=== PATIENT | female | born 1980 | race African-American/Black ===

== ENCOUNTER 2018-08-05 08:43 | Emergency (ER) | payer BC, OTHER ==
[~2018-08-05] VITALS: Ht 170.2 cm; Wt 108.0 kg
[~2018-08-05 08:43] MED LIST: ONDA4TAB7 PO
--- NOTE | 2018-08-05 09:10 | PHYS DOC ---
Past Medical History Past Medical History: Asthma, Hypertension Past Surgical History: No Surgical History Alcohol Use: Occasionally Drug Use: None Adult General Chief Complaint Chief Complaint: ABDOMINAL PAIN HPI HPI Patient is a 37 year old female presents with left lower quadrant pain onset 2: 27 AM sharp severe nonradiating worse with time patient is crying severe pain never had this before Review of Systems Review of Systems Constitutional: Denies fever or chills [] Eyes: Denies change in visual acuity, redness, or eye pain [] HENT: Denies nasal congestion or sore throat [] Respiratory: Denies cough or shortness of breath [] Musculoskeletal: Denies back pain or joint pain [] Integument: Denies rash or skin lesions [] Neurologic: Denies headache, focal weakness or sensory changes [] Endocrine: Denies polyuria or polydipsia [] All other systems were reviewed and found to be within normal limits, except as documented in this note. Current Medications Current Medications Current Medications Medications (Trade) Dose Ordered Sig/Kojo Start Time Stop Time Status Last Admin Dose Admin Lidocaine/ Epinephrine (LIDOCAINE 1%-EPI 1:100,000 Multi-Dose) 20 ml 1X ONCE 08/05/18 10:30 08/05/18 10:31 DC Morphine Sulfate (Morphine Sulfate) 4 mg 1X ONCE 08/05/18 09:15 08/05/18 09:16 DC 08/05/18 09:43 4 MG Ondansetron HCl (Zofran) 4 mg 1X ONCE 08/05/18 09:15 08/05/18 09:16 DC 08/05/18 09:43 4 MG Allergies Allergies Allergies Coded Allergies Type Severity Reaction Last Updated Verified acetaminophen Allergy Intermediate Hives 08/05/18 Yes hydrocodone Allergy Intermediate Hives 08/05/18 Yes latex Allergy Intermediate 08/05/18 Yes naproxen Allergy Mild Nausea and Vomiting 08/05/18 Yes Physical Exam Physical Exam Constitutional: Well developed, well nourished, tearful distress, non-toxic appearance. [] HENT: Normocephalic, atraumatic, bilateral external ears normal, oropharynx moist, no oral exudates, nose normal. [] Eyes: PERRLA, EOMI, conjunctiva normal, no discharge. [] Neck: Normal range of motion, no tenderness, supple, no stridor. [] Pulmonary: Normal respiratory effort no increased work of breathing no obvious chest wall trauma Abdomen: Bowel sounds normal, soft, left lower quadrant tenderness no right lower quadrant tenderness really, no masses, no pulsatile masses. [] Skin: Warm, dry, no erythema, no rash. [] Back: No tenderness, no CVA tenderness. [] Extremities: No tenderness, no cyanosis, no clubbing, ROM intact, no edema. [] Neurologic: Alert and oriented X 3, normal motor function, normal sensory function, no focal deficits noted. [] Psychologic: Affect normal, judgement normal, mood normal. [] Current Patient Data Vital Signs Vital Signs Date Time Temp Pulse Resp B/P (MAP) Pulse Ox O2 Delivery O2 Flow Rate FiO2 08/05/18 09:43 18 100 Room Air 08/05/18 08:50 98.6 103 160/100 (120) 98.6 Lab Values Laboratory Tests Test 08/05/18 09:40 08/05/18 10:13 08/05/18 10:18 White Blood Count 5.1 x10^3/uL (4.0-11.0) Red Blood Count 4.79 x10^6/uL (3.50-5.40) Hemoglobin 13.1 g/dL (12.0-15.5) Hematocrit 39.1 % (36.0-47.0) Mean Corpuscular Volume 82 fL (79-100) Mean Corpuscular Hemoglobin 27 pg (25-35) Mean Corpuscular Hemoglobin Concent 34 g/dL (31-37) Red Cell Distribution Width 14.4 % (11.5-14.5) Platelet Count 240 x10^3/uL (140-400) Neutrophils (%) (Auto) 64 % (31-73) Lymphocytes (%) (Auto) 20 % (24-48) L Monocytes (%) (Auto) 14 % (0-9) H Eosinophils (%) (Auto) 1 % (0-3) Basophils (%) (Auto) 1 % (0-3) Neutrophils # (Auto) 3.2 x10^3uL (1.8-7.7) Lymphocytes # (Auto) 1.0 x10^3/uL (1.0-4.8) Monocytes # (Auto) 0.7 x10^3/uL (0.0-1.1) Eosinophils # (Auto) 0.1 x10^3/uL (0.0-0.7) Basophils # (Auto) 0.0 x10^3/uL (0.0-0.2) Prothrombin Time 13.7 SEC (11.7-14.0) Prothrombin Time INR 1.1 (0.8-1.1) Sodium Level 137 mmol/L (136-145) Potassium Level 3.5 mmol/L (3.5-5.1) Chloride Level 102 mmol/L (98-107) Carbon Dioxide Level 25 mmol/L (21-32) Anion Gap 10 (6-14) Blood Urea Nitrogen 7 mg/dL (7-20) Creatinine 1.0 mg/dL (0.6-1.0) Estimated GFR (Cockcroft-Gault) 75.1 BUN/Creatinine Ratio 7 (6-20) Glucose Level 100 mg/dL (70-99) H Calcium Level 8.6 mg/dL (8.5-10.1) Total Bilirubin 0.3 mg/dL (0.2-1.0) Aspartate Amino Transferase (AST) 19 U/L (15-37) Alanine Aminotransferase (ALT) 25 U/L (14-59) Alkaline Phosphatase 78 U/L (46-116) Total Protein 7.8 g/dL (6.4-8.2) Albumin 3.5 g/dL (3.4-5.0) Albumin/Globulin Ratio 0.8 (1.0-1.7) L Urine Collection Type Void Urine Color Yellow Urine Clarity Clear Urine pH 6.0 Urine Specific [place] 1.010 Urine Protein Negative mg/dL (NEG-TRACE) Urine Glucose (UA) Negative mg/dL (NEG) Urine Ketones (Stick) Negative mg/dL (NEG) Urine Blood Negative (NEG) Urine Nitrite Negative (NEG) Urine Bilirubin Negative (NEG) Urine Urobilinogen Dipstick 1.0 mg/dL (0.2 mg/dL) Urine Leukocyte Esterase Small (NEG) Urine RBC 0 /HPF (0-2) Urine WBC 5-10 /HPF (0-4) Urine Squamous Epithelial Cells Mod /LPF Urine Bacteria Many /HPF (0-FEW) POC Urine HCG, Qualitative Hcg negative (Negative) Laboratory Tests 08/05/18 09:40 Laboratory Tests 08/05/18 09:40 EKG EKG [] Radiology/Procedures Radiology/Procedures [] Impressions: IMPRESSION: 1. 2.8 cm cystic structure identified in the left ovary probably a cyst or cystic lesion. Follow-up examination is recommended to document stability. 2. Mild thickened appearance of the endometrium with questionable increased vascular flow, endometrial hyperplasia or phase of menstrual cycle are possibilities. Correlate clinically. Course & Med Decision Making Course & Med Decision Making Pertinent Labs and Imaging studies reviewed. (See chart for details) []PT BETTER AFTER MORPHINE, COMFORTABLE CYST NOTED NO SIGN OF TORSION OXYCODONE RX, GIVEN PREC ON THIS MED. F/U IN 2 MONTHS FOR REPEAT U/S Dragon Disclaimer Dragon Disclaimer This electronic medical record was generated, in whole or in part, using a voice recognition dictation system. Departure Departure Impression: Primary Impression: Ovarian cyst Disposition: 01 HOME, SELF-CARE Condition: IMPROVED Referrals: LISBETH CAMPBELL DO (PCP) Scripts Oxycodone/Apap 5-325 (PERCOCET 5-325 MG TABLET ) 1 Each Tablet 1-2 EACH PO PRN TID PRN for PAIN, #10 TAB pain Prov: NOREEN BAUTISTA MD 08/05/18 NOREEN BAUTISTA MD Aug 05, 2018 09:10
[2018-08-05] MEDS ORDERED: ONDANSETRON PF 4 MG/2 ML VIAL. IV ONE (09:15)
[2018-08-05] MEDS ORDERED: MORPHINE SULFATE 4 MG/ML VIAL. IV ONE (09:15)
[2018-08-05 09:59] LABS: BASO % 1 % (0-3); EOS # 0.1 x10^3/uL (0.0-0.7); EOS % 1 % (0-3); HEMATOCRIT 39.1 % (36.0-47.0); HEMOGLOBIN 13.1 g/dL (12.0-15.5); LYMPH % 20 % (24-48); MEAN CORPUSCULAR HEMOGLOBIN 27 pg (25-35); MEAN CORPUSCULAR HGB CONC 34 g/dL (31-37); MEAN CORPUSCULAR VOLUME 82 fL (79-100); MONO # 0.7 x10^3/uL (0.0-1.1); MONO % 14 % (0-9); NEUT # 3.2 x10^3uL (1.8-7.7); NEUT % 64 % (31-73); PLATELET COUNT 240 x10^3/uL (140-400); RED BLOOD COUNT 4.79 x10^6/uL (3.50-5.40); RED CELL DISTRIBUTION WIDTH 14.4 % (11.5-14.5); WHITE BLOOD COUNT 5.1 x10^3/uL (4.0-11.0)
[2018-08-05 10:10] LABS: CALCIUM 8.6 mg/dL (8.5-10.1); GFR 75.1; POTASSIUM 3.5 mmol/L (3.5-5.1); PROTHROMBIN TIME PATIENT 13.7 SEC (11.7-14.0)
[2018-08-05 10:13] LABS: ALBUMIN 3.5 g/dL (3.4-5.0); ALBUMIN/GLOBULIN RATIO 0.8 (1.0-1.7); TOTAL BILIRUBIN 0.3 mg/dL (0.2-1.0); TOTAL PROTEIN 7.8 g/dL (6.4-8.2)
[2018-08-05 10:30] LABS: BILIRUBIN,URINE NEGATIVE (NEG); CLARITY,URINE CLEAR; COLOR,URINE YELLOW; NITRITE,URINE NEGATIVE (NEG); PROTEIN,URINE NEGATIVE (NEG-TRACE)
[2018-08-05] MEDS ORDERED: LIDOCAINE 1%/EPI 1:100,000 20 ML VIAL. INJ ONE (10:30)
[2018-08-05 10:42] LABS: SQUAMOUS EPITHELIAL CELL,UR MOD /LPF
--- NOTE | 2018-08-05 10:43 | RAD ---
Examination: Ultrasound pelvis HISTORY: History of left lower quadrant pelvic pain COMPARISON: None available FINDINGS: The uterus measures 9.5 x 5.0 cm. The endometrium measures 1.7 cm in thickness. Questionable mild increased vascular flow identified in the endometrium. The right ovary measures 3.9 x 2.2 x 2.3 cm. The left ovary measures 4.6 x 3.2 x 2.9 cm. Blood flow identified in the right and left ovaries.. There is a cystic structure identified in the left ovary measuring 2.8 cm. IMPRESSION: 1. 2.8 cm cystic structure identified in the left ovary probably a cyst or cystic lesion. Follow-up examination is recommended to document stability. 2. Mild thickened appearance of the endometrium with questionable increased vascular flow, endometrial hyperplasia or phase of menstrual cycle are possibilities. Correlate clinically. Electronically signed by: Willy Coughlin MD (08/05/2018 10:40 AM) [place] [id number]
[2018-08-05 10:44] LABS: BACTERIA,URINE MANY /HPF (0-FEW); RBC,URINE 0 /HPF (0-2)
[2018-08-05] MEDS ORDERED: OXYC1TAB15 PO (10:59)
[2018-08-05 11:10] VITALS: BP 169/85
== END 2018-08-05 11:19 | disposition home or self-care (01) ==
LOC: ER 08:43
DX: N83.202 Unspecified ovarian cyst, left side (principal); J45.909 Unspecified asthma, uncomplicated; I10 Essential (primary) hypertension; Z88.5 Allergy status to narcotic agent; Z88.6 Allergy status to analgesic agent; Z88.8 Allergy status to other drugs, medicaments and biological substances; Z91.040 Latex allergy status
CPT/HCPCS: 36415; 76856; 80053; 81001; 81025; 85025; 85610; 87086; 96374; 96375; 99284; J2270; J2405

== ENCOUNTER 2018-08-25 19:00 | Emergency (ER) | payer BC, OTHER ==
[~2018-08-25] VITALS: Ht 170.2 cm; Wt 108.9 kg
[~2018-08-25 19:00] MED LIST changes: +OXYC1TAB15 PO
[2018-08-25] MEDS ORDERED: fentaNYL PF VIAL 100 MCG/2 ML VIAL IV ONE (21:00)
[2018-08-25] MEDS ORDERED: IV NORMAL SALINE 1000ML BAG 1,000 ML IV ONE (21:00)
[2018-08-25] MEDS ORDERED: KETOROLAC 15 MG/ML VIAL. IV ONE (21:15)
[2018-08-25 21:23] LABS: CALCIUM 8.9 mg/dL (8.5-10.1); GFR 75.1; POTASSIUM 3.2 mmol/L (3.5-5.1)
[2018-08-25 21:30] LABS: ALBUMIN 3.3 g/dL (3.4-5.0); ALBUMIN/GLOBULIN RATIO 0.8 (1.0-1.7); TOTAL BILIRUBIN 0.2 mg/dL (0.2-1.0); TOTAL PROTEIN 7.7 g/dL (6.4-8.2)
--- NOTE | 2018-08-25 21:34 | PHYS DOC ---
Past Medical History Past Medical History: Asthma, Hypertension Past Surgical History: Other Additional Past Surgical Histo: breast reduction Alcohol Use: Occasionally Drug Use: None Adult General Chief Complaint Chief Complaint: ABDOMINAL PAIN HPI HPI Patient is a 37 year old presents to the ED with left lower quadrant abdominal and adnexal pain. The pain started suddenly when she was sitting at work earlier 4-5 hours ago. The pain radiates through to her left low back and flank. She describes the pain as a stabbing 10/10 pain. The only thing that makes it better is lying right lateral recumbent in the position. Aggravating factors are standing and walking. Denies . Denies trauma. Denies fever/chills. Review of Systems Review of Systems Constitutional: Denies fever or chills [] Eyes: Denies change in visual acuity, redness, or eye pain [] HENT: Denies nasal congestion or sore throat [] Respiratory: Denies cough or shortness of breath [] Cardiovascular: Denies chest pain or palpitations. GI: Admits left abdominal pain. Denies nausea, vomiting, or diarrhea [] : Admits left adnexal pain Denies dysuria or hematuria [] Musculoskeletal: Reports back pain; denies joint pain [] Integument: Denies rash or skin lesions [] Neurologic: Denies headache, focal weakness or sensory changes [] Complete systems were reviewed and found to be within normal limits, except as documented in this note. Current Medications Current Medications Current Medications Medications (Trade) Dose Ordered Sig/Kojo Start Time Stop Time Status Last Admin Dose Admin Ceftriaxone Sodium (Rocephin) 1 gm 1X ONCE 08/25/18 23:45 08/25/18 23:46 DC 08/26/18 00:08 1 GM Fentanyl Citrate (Fentanyl 2ml Vial) 50 mcg 1X ONCE 08/25/18 21:00 08/25/18 21:07 DC 08/25/18 21:14 50 MCG Ketorolac Tromethamine (Toradol 15mg Vial) 15 mg 1X ONCE 08/25/18 21:15 08/25/18 21:16 DC 08/25/18 21:14 15 MG Morphine Sulfate (Morphine Sulfate) 4 mg 1X ONCE 08/25/18 22:45 08/25/18 22:46 DC 08/25/18 22:52 4 MG Ondansetron HCl (Zofran) 4 mg 1X ONCE 08/26/18 00:45 08/26/18 00:46 DC 08/26/18 00:46 4 MG Potassium Chloride (Klor-Con) 40 meq 1X ONCE 08/25/18 23:45 08/25/18 23:46 DC 08/26/18 00:07 40 MEQ Sodium Chloride 1,000 ml @ 1,000 mls/hr 1X ONCE 08/25/18 21:00 08/25/18 21:59 DC 08/25/18 21:15 1,000 MLS/HR Allergies Allergies Allergies Coded Allergies Type Severity Reaction Last Updated Verified acetaminophen Allergy Intermediate Hives 08/05/18 Yes hydrocodone Allergy Intermediate Hives 08/05/18 Yes latex Allergy Intermediate 08/05/18 Yes naproxen Adverse Reaction Intermediate Nausea and Vomiting 08/25/18 Yes Physical Exam Physical Exam Constitutional: Well developed, well nourished, no acute distress, non-toxic appearance. [] HENT: Normocephalic, atraumatic, oropharynx moist Eyes: Conjunctiva normal, no discharge. [] Neck: Normal range of motion, no tenderness, supple Cardiovascular: Heart rate regular rhythm, CR < 2 sec Lungs & Thorax: Bilateral breath sounds clear to auscultation [] Abdomen: Soft, tender to palpation left lower quadrant and left adnexal areas. Guarding present. No rebound tenderness. Negative Rush's sign, negative McBurney sign. Skin: Warm, dry, no erythema, no rash. [] Back: Left CVA tenderness present. Left lower lumbar paraspinal muscle tenderness. Nonerythematous. [] Extremities: No tenderness, ROM intact, no edema. [] Neurologic: Alert and oriented, no focal deficits noted. [] Psychologic: Affect normal, judgement normal, mood normal. [] Current Patient Data Vital Signs Vital Signs Date Time Temp Pulse Resp B/P (MAP) Pulse Ox O2 Delivery O2 Flow Rate FiO2 08/25/18 23:41 87 20 176/92 (120) 99 Room Air 08/25/18 19:39 97.2 97.2 Lab Values Laboratory Tests Test 08/25/18 21:08 08/25/18 22:00 08/25/18 22:56 White Blood Count 12.1 x10^3/uL (4.0-11.0) H Red Blood Count 4.78 x10^6/uL (3.50-5.40) Hemoglobin 12.6 g/dL (12.0-15.5) Hematocrit 38.9 % (36.0-47.0) Mean Corpuscular Volume 81 fL (79-100) Mean Corpuscular Hemoglobin 26 pg (25-35) Mean Corpuscular Hemoglobin Concent 32 g/dL (31-37) Red Cell Distribution Width 14.4 % (11.5-14.5) Platelet Count 281 x10^3/uL (140-400) Neutrophils (%) (Auto) 63 % (31-73) Lymphocytes (%) (Auto) 26 % (24-48) Monocytes (%) (Auto) 8 % (0-9) Eosinophils (%) (Auto) 1 % (0-3) Basophils (%) (Auto) 1 % (0-3) Neutrophils # (Auto) 7.7 x10^3uL (1.8-7.7) Lymphocytes # (Auto) 3.2 x10^3/uL (1.0-4.8) Monocytes # (Auto) 1.0 x10^3/uL (0.0-1.1) Eosinophils # (Auto) 0.1 x10^3/uL (0.0-0.7) Basophils # (Auto) 0.1 x10^3/uL (0.0-0.2) Sodium Level 139 mmol/L (136-145) Potassium Level 3.2 mmol/L (3.5-5.1) L Chloride Level 102 mmol/L (98-107) Carbon Dioxide Level 30 mmol/L (21-32) Anion Gap 7 (6-14) Blood Urea Nitrogen 10 mg/dL (7-20) Creatinine 1.0 mg/dL (0.6-1.0) Estimated GFR (Cockcroft-Gault) 75.1 BUN/Creatinine Ratio 10 (6-20) Glucose Level 141 mg/dL (70-99) H Calcium Level 8.9 mg/dL (8.5-10.1) Magnesium Level 2.0 mg/dL (1.8-2.4) Total Bilirubin 0.2 mg/dL (0.2-1.0) Aspartate Amino Transferase (AST) 22 U/L (15-37) Alanine Aminotransferase (ALT) 32 U/L (14-59) Alkaline Phosphatase 86 U/L (46-116) Total Protein 7.7 g/dL (6.4-8.2) Albumin 3.3 g/dL (3.4-5.0) L Albumin/Globulin Ratio 0.8 (1.0-1.7) L Lipase 758 U/L (73-393) H Urine Color Yellow Urine Clarity Clear Urine pH 6.0 Urine Specific [place] 1.015 Urine Protein Negative mg/dL (NEG-TRACE) Urine Glucose (UA) Negative mg/dL (NEG) Urine Ketones (Stick) Negative mg/dL (NEG) Urine Blood Negative (NEG) Urine Nitrite Positive (NEG) Urine Bilirubin Negative (NEG) Urine Urobilinogen Dipstick 0.2 mg/dL (0.2 mg/dL) Urine Leukocyte Esterase Small (NEG) Urine RBC 0 /HPF (0-2) Urine WBC 1-4 /HPF (0-4) Urine Squamous Epithelial Cells Occ /LPF Urine Bacteria Many /HPF (0-FEW) POC Urine HCG, Qualitative Hcg negative (Negative) Laboratory Tests 08/25/18 21:08 Laboratory Tests 08/25/18 21:08 Microbiology 08/25/18 Urine Culture - Final, Complete 08/25/18 Urine Culture Result 1 (LAURENCE) - Final, Complete 08/25/18 Antimicrobic Susceptibility - Final, Complete Microbiology 08/25/18 Urine Culture - Final, Complete 08/25/18 Urine Culture Result 1 (LAURENCE) - Final, Complete 08/25/18 Antimicrobic Susceptibility - Final, Complete EKG EKG [] Radiology/Procedures Radiology/Procedures PROCEDURE: PELVIS W/TV PELVIS W/TV History: Left lower quadrant pain for 6 hours Comparison: None. Findings: Multiple transabdominal sonographic images of pelvis are submitted. Uterus measured 8.9 x 5 x 5.4 cm. Neither ovary is well visualized. Transvaginal ultrasound: Multiple transvaginal sonographic images of the pelvis are submitted. Endometrium measured about 1 cm in thickness. Uterus measured 10.3 x 4.7 x 5.1 cm. There are nabothian cysts. There is nonspecific heterogeneity of the myometrium. There is minimal free fluid near the right ovary. Right ovary measured 4 x 1.8 x 1.9 cm. Left ovary measured 5.3 x 2.9 x 2.6 cm. There is a hypoechoic lesion of the left ovary about 1.7 x 1.6 x 1.9 cm. There is normal color flow and low resistance vascularity of the ovaries bilaterally. Impression: 1. There is a small cyst or dominant follicle of the left ovary. There is minimal free fluid near the right ovary. Electronically signed by: Chrystal Vanegas MD (08/25/2018 10:00 PM) [facility] PROCEDURE: CT ABDOMEN PELVIS WO CONTRAST CT Abdomen and Pelvis without contrast History: Left flank pain, history of left ovarian cyst Technique: Noncontrast CT imaging was performed of the abdomen and pelvis. Multiplanar images are reviewed. Exposure: One or more of the following individualized dose reduction techniques were utilized for this examination: 1. Automated exposure control 2. Adjustment of the mA and/or kV according to patient size 3. Use of iterative reconstruction technique. Comparison: October 06, 2012 Findings: There is no abnormality limited visualized lung bases. There is no no urolithiasis or hydronephrosis. Gallbladder is present without obvious intraluminal abnormality by CT. There is similar fullness of the left adrenal gland, possible underlying adenoma unchanged. No obvious focal abnormality is identified of the liver, spleen, pancreas allowing for noncontrast technique. Evaluation of bowel is limited without oral contrast. There is no free air or significant free fluid. Normal appendix is visualized. There is fullness of the left adnexa with likely 2.5 cm hypodense lesion although density measurements not of a simple cyst 28 Hounsfield units. Impression: 1. There is what may represent a complex left adnexal cyst otherwise difficult characterize by CT, no free fluid. 2. There is no evidence of acute appendicitis. Electronically signed by: Chrystal Vanegas MD (08/25/2018 11:48 PM) [facility] DICTATED and SIGNED BY: CHRYSTAL VANEGAS MD DATE: 08/25/182156 Course & Med Decision Making Course & Med Decision Making Pertinent Labs and Imaging studies reviewed. (See chart for details) Patient is a 37-year-old female presents to the emergency department with pain in the left lower quadrant, left adnexal, left low back, and left flank. Lipase 2 times the upper limit of normal. Pelvic ultrasound showed no signs of torsion and a small cyst on the left ovary. CBC Slightly Elevated. Mild Hypokalemia noted and treated with replacement. CT abdomen and pelvis noted the left sided ovarian cyst but otherwise without acute process. UA showed signs of infection and empiric antibiotics were started. Patient stable for discharge home with outpatient follow-up with PCP/[facility]/GI. GI [facility] referral provided. Discussed findings and plan with patient, who acknowledges understanding and agreement. Dragon Disclaimer Dragon Disclaimer This electronic medical record was generated, in whole or in part, using a voice recognition dictation system. Departure Departure Impression: Primary Impression: Ovarian cyst Additional Impressions: Elevated lipase Urinary tract infection Hypokalemia Disposition: HOME, SELF-CARE Condition: STABLE Referrals: LISBETH CAMPBELL DO (PCP) SHRUTI LAO Jr, MD, SCOTT S MD Patient Instructions: Hypokalemia-Brief, Lipase, Ovarian Cyst, [id number], Potassium Content of Foods, Urinary Tract Infection, [id number] Scripts Ondansetron (ONDANSETRON ODT) 4 Mg Tab.rapdis 1 TAB PO PRN Q6-8HRS PRN for NAUSEA, #16 TAB Prov: GUY CRAFT DO 08/26/18 Cephalexin (KEFLEX) 500 Mg Capsule 500 MG PO TID for 7 Days, #21 CAP Prov: GUY CRAFT DO 08/26/18 Oxycodone/Apap 5-325 (PERCOCET 5-325 MG TABLET ) 1 Each Tablet 1 TAB PO PRN Q6HRS PRN for PAIN, #8 TAB 0 Refills Prov: GUY CRAFT DO 08/26/18 Problem Qualifiers Primary Impression: Ovarian cyst Laterality: left Qualified Codes: N83.202 - Unspecified ovarian cyst, left side Additional Impressions: Urinary tract infection Urinary tract infection type: acute cystitis Hematuria presence: without hematuria Qualified Codes: N30.00 - Acute cystitis without hematuria GUY CRAFT DO Aug 25, 2018 21:34
[2018-08-25 21:52] LABS: BASO # 0.1 x10^3/uL (0.0-0.2); BASO % 1 % (0-3); EOS # 0.1 x10^3/uL (0.0-0.7); EOS % 1 % (0-3); HEMATOCRIT 38.9 % (36.0-47.0); HEMOGLOBIN 12.6 g/dL (12.0-15.5); LYMPH # 3.2 x10^3/uL (1.0-4.8); LYMPH % 26 % (24-48); MEAN CORPUSCULAR HEMOGLOBIN 26 pg (25-35); MEAN CORPUSCULAR HGB CONC 32 g/dL (31-37); MEAN CORPUSCULAR VOLUME 81 fL (79-100); MONO % 8 % (0-9); NEUT # 7.7 x10^3uL (1.8-7.7); NEUT % 63 % (31-73); PLATELET COUNT 281 x10^3/uL (140-400); RED BLOOD COUNT 4.78 x10^6/uL (3.50-5.40); RED CELL DISTRIBUTION WIDTH 14.4 % (11.5-14.5); WHITE BLOOD COUNT 12.1 x10^3/uL (4.0-11.0)
--- NOTE | 2018-08-25 22:03 | RAD ---
PELVIS W/TV History: Left lower quadrant pain for 6 hours Comparison: None. Findings: Multiple transabdominal sonographic images of pelvis are submitted. Uterus measured 8.9 x 5 x 5.4 cm. Neither ovary is well visualized. Transvaginal ultrasound: Multiple transvaginal sonographic images of the pelvis are submitted. Endometrium measured about 1 cm in thickness. Uterus measured 10.3 x 4.7 x 5.1 cm. There are nabothian cysts. There is nonspecific heterogeneity of the myometrium. There is minimal free fluid near the right ovary. Right ovary measured 4 x 1.8 x 1.9 cm. Left ovary measured 5.3 x 2.9 x 2.6 cm. There is a hypoechoic lesion of the left ovary about 1.7 x 1.6 x 1.9 cm. There is normal color flow and low resistance vascularity of the ovaries bilaterally. Impression: 1. There is a small cyst or dominant follicle of the left ovary. There is minimal free fluid near the right ovary. Electronically signed by: Kody Huang MD (08/25/2018 10:00 PM) [facility]
[2018-08-25] MEDS ORDERED: MORPHINE SULFATE 4 MG/ML VIAL. IV ONE (22:45)
[2018-08-25 23:03] LABS: BILIRUBIN,URINE NEGATIVE (NEG); CLARITY,URINE CLEAR; COLOR,URINE YELLOW; NITRITE,URINE POSITIVE (NEG); PROTEIN,URINE NEGATIVE (NEG-TRACE); UROBILINOGEN,URINE 0.2 mg/dL (0.2 mg/dL)
[2018-08-25 23:09] LABS: BACTERIA,URINE MANY /HPF (0-FEW); RBC,URINE 0 /HPF (0-2); SQUAMOUS EPITHELIAL CELL,UR OCC /LPF
[2018-08-25 23:41] VITALS: BP 176/92
[2018-08-25] MEDS ORDERED: POTASSIUM CHLORIDE 20 MEQ TABLET.ER. PO ONE (23:45)
[2018-08-25] MEDS ORDERED: cefTRIAXone IV Push 1 GM VIAL. IVP ONE (23:45)
--- NOTE | 2018-08-25 23:51 | RAD ---
CT Abdomen and Pelvis without contrast History: Left flank pain, history of left ovarian cyst Technique: Noncontrast CT imaging was performed of the abdomen and pelvis. Multiplanar images are reviewed. Exposure: One or more of the following individualized dose reduction techniques were utilized for this examination: 1. Automated exposure control 2. Adjustment of the mA and/or kV according to patient size 3. Use of iterative reconstruction technique. Comparison: October 06, 2012 Findings: There is no abnormality limited visualized lung bases. There is no no urolithiasis or hydronephrosis. Gallbladder is present without obvious intraluminal abnormality by CT. There is similar fullness of the left adrenal gland, possible underlying adenoma unchanged. No obvious focal abnormality is identified of the liver, spleen, pancreas allowing for noncontrast technique. Evaluation of bowel is limited without oral contrast. There is no free air or significant free fluid. Normal appendix is visualized. There is fullness of the left adnexa with likely 2.5 cm hypodense lesion although density measurements not of a simple cyst 28 Hounsfield units. Impression: 1. There is what may represent a complex left adnexal cyst otherwise difficult characterize by CT, no free fluid. 2. There is no evidence of acute appendicitis. Electronically signed by: Kody Huang MD (08/25/2018 11:48 PM) [facility]
[2018-08-26] MEDS ORDERED: OXYC1TAB15 PO (00:41)
[2018-08-26] MEDS ORDERED: CEPH-264 PO (00:41)
[2018-08-26] MEDS ORDERED: ONDANSETRON PF 4 MG/2 ML VIAL. ONE (00:43)
[2018-08-26] MEDS ORDERED: ONDANSETRON PF 4 MG/2 ML VIAL. IV ONE (00:45)
[2018-08-26] MEDS ORDERED: ONDA4TAB12 PO (00:48)
== END 2018-08-26 01:16 | disposition home or self-care (01) ==
LOC: ER 19:00
DX: N83.202 Unspecified ovarian cyst, left side (principal); N30.00 Acute cystitis without hematuria; E87.6 Hypokalemia; R74.8 Abnormal levels of other serum enzymes; M54.5 Low back pain; I10 Essential (primary) hypertension; J45.909 Unspecified asthma, uncomplicated; Z88.5 Allergy status to narcotic agent; Z88.6 Allergy status to analgesic agent; Z88.8 Allergy status to other drugs, medicaments and biological substances; Z91.040 Latex allergy status
CPT/HCPCS: 36415; 74176; 76830; 76856; 80053; 81001; 81025; 83690; 83735; 85025; 87086; 96374; 96375; 99284; J0696; J1885; J2270; J2405; J3010; J7030; 87186

== ENCOUNTER 2021-11-14 16:21 | Emergency (ER) | payer BC, OTHER ==
[~2021-11-14] VITALS: Ht 170.2 cm; Wt 100.5 kg
[~2021-11-14 16:21] MED LIST changes: +CEPH-264 PO; +ONDA4TAB12 PO
[2021-11-14 16:22] VITALS: BP 182/113
--- NOTE | 2021-11-14 16:42 | ED.ADGEN ---
Past Medical History Past Medical History: Asthma, Hypertension Past Surgical History: Other Additional Past Surgical Histo: breast reduction Smoking Status: Never Smoker Alcohol Use: Occasionally Drug Use: None General Adult EDM: Chief Complaint: MULTIPLE COMPLAINTS HPI: HPI: Patient is a 40-year-old female who arrives ambulatory to the emergency department with an initial complaint of congestion with left ear pain. Patient reports she has been dealing with this intermittently for the past 3 weeks. Patient states she is unable to hear from her left ear at this time and reports that her initial nasal congestion has likely moved into her chest. Patient reports she has pain with coughing fits and deep breathing. Patient was evaluated by her primary care physician yesterday and placed on antibiotics for likely ear infection. The patient's primary care physician was equally concerned about the patient's elevated blood pressure. Patient reports that she does take 2 blood pressure medications and does not miss any doses. The primary care physician sent the patient to the emergency department for concerns about a possible stroke. The patient states she has felt fatigued however she is not had any neurological changes. She denies any headache. Additionally she denies any chest pain or resting shortness of air. Furthermore she states that she has had the initial vaccinations for COVID-19 however she has not received a booster as of yet. She is awake, alert and nontoxic-appearing Review of Systems: Review of Systems: Constitutional: Reports fatigue as well as intermittent fevers. Denies chills. [] Eyes: Denies change in visual acuity. [] HENT: Reports left ear pain as well as hearing loss. Denies nasal congestion or sore throat. [] Respiratory: Reports cough as well as pain with deep breathing. Denies shortness of breath. [] Cardiovascular: Denies chest pain or edema. [] GI: Denies abdominal pain, nausea, vomiting, bloody stools or diarrhea. [] : Denies dysuria. [] Musculoskeletal: Denies back pain or joint pain. [] Integument: Denies rash. [] Neurologic: Denies headache, focal weakness or sensory changes. [] Endocrine: Denies polyuria or polydipsia. [] Lymphatic: Denies swollen glands. [] Psychiatric: Denies depression or anxiety. [] Allergies: Allergies: Allergies Coded Allergies Type Severity Reaction Last Updated Verified acetaminophen Allergy Intermediate Hives 08/05/18 Yes hydrocodone Allergy Intermediate Hives 08/05/18 Yes latex Allergy Intermediate 08/05/18 Yes naproxen Adverse Reaction Intermediate Nausea and Vomiting 08/25/18 Yes Physical Exam: PE: Constitutional: Well developed, well nourished, no acute distress, non-toxic appearance. [] HENT: Normocephalic, atraumatic, bilateral external ears normal, oropharynx moist, no oral exudates, nose normal. [] Eyes: PERRLA, EOMI, conjunctiva normal, no discharge. [] Neck: Normal range of motion, no tenderness, supple, no stridor. [] Cardiovascular:Heart rate regular rhythm, no murmur [] Lungs & Thorax: Expiratory wheezes which are very mild in nature. Otherwise patient has excellent air movement. [] Abdomen: Bowel sounds normal, soft, no tenderness, no masses, no pulsatile masses. [] Skin: Warm, dry, no erythema, no rash. [] Back: No tenderness, no CVA tenderness. [] Extremities: No tenderness, no cyanosis, no clubbing, ROM intact, no edema. [] Neurologic: Alert and oriented X 3, normal motor function, normal sensory function, no focal deficits noted. [] Psychologic: Affect normal, judgement normal, mood normal. [] Current Patient Data: Labs: Laboratory Tests Test 11/14/21 16:40 White Blood Count 7.4 x10^3/uL (4.0-11.0) Red Blood Count 5.11 x10^6/uL (3.50-5.40) Hemoglobin 14.1 g/dL (12.0-15.5) Hematocrit 42.0 % (36.0-47.0) Mean Corpuscular Volume 82 fL (79-100) Mean Corpuscular Hemoglobin 28 pg (25-35) Mean Corpuscular Hemoglobin Concent 34 g/dL (31-37) Red Cell Distribution Width 13.6 % (11.5-14.5) Platelet Count 349 x10^3/uL (140-400) Neutrophils (%) (Auto) 60 % (31-73) Lymphocytes (%) (Auto) 28 % (24-48) Monocytes (%) (Auto) 9 % (0-9) Eosinophils (%) (Auto) 2 % (0-3) Basophils (%) (Auto) 1 % (0-3) Neutrophils # (Auto) 4.4 x10^3/uL (1.8-7.7) Lymphocytes # (Auto) 2.1 x10^3/uL (1.0-4.8) Monocytes # (Auto) 0.7 x10^3/uL (0.0-1.1) Eosinophils # (Auto) 0.1 x10^3/uL (0.0-0.7) Basophils # (Auto) 0.1 x10^3/uL (0.0-0.2) Sodium Level 139 mmol/L (136-145) Potassium Level 3.5 mmol/L (3.5-5.1) Chloride Level 104 mmol/L (98-107) Carbon Dioxide Level 25 mmol/L (21-32) Anion Gap 10 (6-14) Blood Urea Nitrogen 10 mg/dL (7-20) Creatinine 1.0 mg/dL (0.6-1.0) Estimated GFR (Cockcroft-Gault) 73.9 Glucose Level 143 mg/dL (70-99) H Calcium Level 9.0 mg/dL (8.5-10.1) Troponin I High Sensitivity 7 ng/L (4-50) CQ-Huc-Y-Type Natriuretic Peptide 40 pg/mL (0-124) Laboratory Tests 11/14/21 16:40 Laboratory Tests 11/14/21 16:40 Vital Signs: Vital Signs Date Time Temp Pulse Resp B/P (MAP) Pulse Ox O2 Delivery O2 Flow Rate FiO2 11/14/21 16:22 98.5 78 18 182/113 (136) 98 Room Air 98.5 EKG: EKG: EKG was obtained at 1637 hrs. reveals a sinus tachycardia with a ventricular rate of 108 bpm. Intervals are otherwise normal. There are no ST/T wave changes to denote ischemia. There is no STEMI present. Heart Score: C/O Chest Pain: No HEART Score for Chest Pain: HEART Score for Chest Pain Response (Comments) Value History Slighlty/Non-Suspicious 0 ECG Normal 0 Age < 45 0 Risk Factors 1 or 2 Risk Factors 1 Troponin < Normal Limit 0 Total 1 Risk Factors: Risk Factors: DM, Current or recent (<one month) smoker, HTN, HLP, family history of CAD, obesity. Risk Scores: Score 0 - 3: 2.5% MACE over next 6 weeks - Discharge Home Score 4 - 6: 20.3% MACE over next 6 weeks - Admit for Clinical Observation Score 7 - 10: 72.7% MACE over next 6 weeks - Early Invasive Strategies Radiology/Procedures: Radiology/Procedures: [][facility] [address] [place] [address] IMAGING REPORT Signed PATIENT: JESSICA WAYNE ACCOUNT: [id number] : 1980 LOCATION: ER AGE: 40 SEX: F EXAM STATUS: REG ER ORD. PHYSICIAN: HERRERA SORENSEN DO REASON: SOA PROCEDURE: PORTABLE CHEST 1V EXAMINATION: Chest radiograph. VIEWS: Single AP view of the chest COMPARISON: 07/31/2010 INDICATION:40 years, Female, shortness of air. FINDINGS: Normal cardiomediastinal silhouette. No focal consolidation. No pleural effusion or pneumothorax. No acute osseous process. IMPRESSION: No acute cardiopulmonary process. Electronically signed by: Randi Tabor DO (11/14/2021 5:13 PM) [id number] DICTATED and SIGNED BY: RANDI TABOR DO DATE: 11/14/211711 Course & Med Decision Making: Course & Med Decision Making Pertinent Labs and Imaging studies reviewed. (See chart for details). Upon arrival the patient was taken to fast-track room B where she was interviewed and evaluated. Patient's initial complaint was relative to left ear pain stemming from an upper respiratory infection. The patient does have reported hypertension which has been poorly controlled as of late. The patient did report that she has been short of air however she relates that to a cough. Nonetheless given that the patient has not been evaluated for her elevated blood pressure, I did feel it necessary to obtain some baseline blood work as well as imaging and an EKG. All of these modalities were well within normal limits. I have encouraged the patient to follow-up with her primary care physician for ongoing control of her blood pressure. More so I have elected to place the patient on a course of steroids as well as pain medication for the left ear discomfort she is experiencing. I also advised that she continue taking her antibiotics as prescribed. She has been encouraged to follow-up with her primary care physician as well should she have ongoing hearing loss or consider referral to an ENT physician. Should she develop any neck stiffness, fevers or neurological change, she is been advised to return to the emergency department. This is the same for any new chest pain, shortness of air or fevers. She understands and has agreed to do so. She is nontoxic-appearing and stable for discharge. Patient's blood pressure discharge is 162/93 without intervention [] Dragon Disclaimer: Dragon Disclaimer: This electronic medical record was generated, in whole or in part, using a voice recognition dictation system. Departure Departure Impression: Primary Impression: URI (upper respiratory infection) Additional Impressions: Otalgia of left ear Poorly-controlled hypertension Disposition: HOME / SELF CARE / HOMELESS Condition: STABLE Referrals: LISBETH CAMPBELL DO (PCP) Patient Instructions: Hearing Loss, Hypertension, Otalgia, Upper Respiratory Infection, Adult Scripts Tramadol Hcl (ULTRAM) 50 Mg Tablet 1 TAB PO PRN Q6HRS PRN for pain MDD 4 Tablet(s) for 3 Days, #12 TAB 0 Refills Prov: HERRERA SORENSEN DO 11/14/21 Methylprednisolone (MEDROL) 4 Mg Tab.ds.pk 1 PKG PO UD for 7 Days, #1 PKG Prov: HERRERA SORENSEN DO 11/14/21 Problem Qualifiers HERRERA SORENSEN DO November 14, 2021 16:42
[2021-11-14 16:54] LABS: BASO # 0.1 x10^3/uL (0.0-0.2); BASO % 1 % (0-3); EOS # 0.1 x10^3/uL (0.0-0.7); EOS % 2 % (0-3); HEMOGLOBIN 14.1 g/dL (12.0-15.5); LYMPH # 2.1 x10^3/uL (1.0-4.8); LYMPH % 28 % (24-48); MEAN CORPUSCULAR HEMOGLOBIN 28 pg (25-35); MEAN CORPUSCULAR HGB CONC 34 g/dL (31-37); MEAN CORPUSCULAR VOLUME 82 fL (79-100); MONO # 0.7 x10^3/uL (0.0-1.1); MONO % 9 % (0-9); NEUT # 4.4 x10^3/uL (1.8-7.7); NEUT % 60 % (31-73); PLATELET COUNT 349 x10^3/uL (140-400); RED BLOOD COUNT 5.11 x10^6/uL (3.50-5.40); RED CELL DISTRIBUTION WIDTH 13.6 % (11.5-14.5); WHITE BLOOD COUNT 7.4 x10^3/uL (4.0-11.0)
--- NOTE | 2021-11-14 17:15 | RAD ---
EXAMINATION: Chest radiograph. VIEWS: Single AP view of the chest COMPARISON: 07/31/2010 INDICATION:40 years, Female, shortness of air. FINDINGS: Normal cardiomediastinal silhouette. No focal consolidation. No pleural effusion or pneumothorax. No acute osseous process. IMPRESSION: No acute cardiopulmonary process. Electronically signed by: Abel Tabor DO (11/14/2021 5:13 PM) [id number]
[2021-11-14 17:21] LABS: GFR 73.9; POTASSIUM 3.5 mmol/L (3.5-5.1)
[2021-11-14] MEDS ORDERED: METH4TAB2 PO (18:01)
[2021-11-14] MEDS ORDERED: TRAM-48 PO (18:03)
== END 2021-11-14 18:18 | disposition home or self-care (01) ==
LOC: ER 16:21
DX: J06.9 Acute upper respiratory infection, unspecified (principal); H92.02 Otalgia, left ear; I10 Essential (primary) hypertension; J45.909 Unspecified asthma, uncomplicated; Z88.5 Allergy status to narcotic agent; Z91.040 Latex allergy status; Z88.6 Allergy status to analgesic agent
CPT/HCPCS: 36415; 71045; 80048; 83880; 84484; 85025; 99284-25; 99285-25